=== PATIENT | female | born 1975 | race Caucasian/White ===

== ENCOUNTER 2018-07-15 14:54 | Outpatient (CLI) | payer BC | END 2018-07-15 17:39 | disposition home or self-care (01) | LOC: OBT 14:54 → L-D 14:56 → OBT 17:39 | DX: O40.3XX0 Polyhydramnios, third trimester, not applicable or unspecified (principal); O09.523 Supervision of elderly multigravida, third trimester; Z3A.32 32 weeks gestation of pregnancy | CPT/HCPCS: 76817; 76818; 82962 ==

== ENCOUNTER 2018-08-21 09:57 | Inpatient (IN) | payer BC, OTHER ==
[2018-08-21] MEDS ORDERED: CARBOPROST 250 MCG INJ IM (10:00)
[2018-08-21] MEDS ORDERED: OXYTOCIN 30 UNITS/LR 500 ML IV (10:00)
[2018-08-21] MEDS ORDERED: LIDOCAINE 1% (MPF) 30 ML INJ INJ (10:00)
[2018-08-21] MEDS ORDERED: BUTORPHANOL 2 MG INJ IV (10:00)
[2018-08-21] MEDS ORDERED: BUTORPHANOL 1 MG INJ IV (10:00)
[2018-08-21] MEDS ORDERED: IBUPROFEN 600 MG TAB PO (10:00)
[2018-08-21] MEDS ORDERED: MISOPROSTOL 200 MCG TAB PR (10:00)
[2018-08-21] MEDS ORDERED: METHYLERGONOVINE 0.2 MG INJ IM (10:00)
[2018-08-21 10:52] LABS: ADD MAN DIFF? NO
[2018-08-21 11:00] LABS: ABNORMAL IP MESSAGE 1; BASOPHILS % 0.3 % (0.0-2.0); HEMATOCRIT 29.1 % (37.0-47.0); HEMOGLOBIN 9.2 g/dl (12.0-16.0); LYMPHOCYTES # 1.9 10^3/ul (0.8-2.9); LYMPHOCYTES % 26.2 % (15.0-51.0); MEAN CORPUSCULAR HEMOGLOBIN 26.8 pg (29.0-33.0); MEAN CORPUSCULAR HGB CONC 31.6 g/dl (32.0-37.0); MEAN CORPUSCULAR VOLUME 84.8 fl (82.0-101.0); MEAN PLATELET VOLUME 13.5 fl (7.4-10.4); MONOCYTE # 0.3 10^3/ul (0.3-0.9); MONOCYTES % 4.3 % (0.0-11.0); NEUTROPHIL # 4.9 10^3/ul (1.6-7.5); NEUTROPHILS % 68.8 % (39.0-77.0); PLATELET COUNT 118 10^3/UL (140-415); RED BLOOD COUNT 3.43 10^6/ul (4.20-5.40); RED CELL DISTRIBUTION WIDTH 13.2 % (11.5-14.5)
[2018-08-21 11:00] LABS: WHITE BLOOD COUNT 7.1 10^3/ul (4.8-10.8)
[2018-08-21 11:01] LABS: POSITIVE DIFF @See below
[2018-08-21 11:19] LABS: INR 0.78; PARTIAL THROMBOPLASTIN TIME 23.2 Sec (23.0-35.0); PT RATIO 0.9
[2018-08-21 11:19] LABS: GLUCOSE 98 mg/dl (70-220)
[2018-08-21] MEDS: LACTATED RINGER'S 1,000 ML IV ×3 (11:29→17:59)
[2018-08-21] MEDS: OXYTOCIN 30 UNITS/LR 500 ML IV ×3 (14:00→22:25)
[2018-08-21] MEDS: DEXTROSE 5%-LR 1,000 ML IV (14:27)
[2018-08-21 15:07] LABS: HEPATITIS B SURFACE ANTIGEN NEGATIVE (NEGATIVE)
[2018-08-21] MEDS ORDERED: NALOXONE (0.4 MG/ML) INJ IV (18:00)
[2018-08-21] MEDS ORDERED: FENTAnyl 2MCG/ML-ROPIV 0.2% 100 ML BAG EPI (18:00)
[2018-08-21] MEDS ORDERED: FENTAnyl 2MCG/ML-ROPIV 0.2% 100 ML (18:06)
[2018-08-21 18:49] LABS: RAPID PLASMA REAGIN NONREACTIVE (NR)
[2018-08-21] MEDS: MINERAL OIL LIGHT 10 ML VIAL TOP (19:30)
[2018-08-22] MEDS ORDERED: ZOLPIDEM 5 MG TAB PO (01:30)
[2018-08-22] MEDS ORDERED: LANOLIN HPA 1 PKT TOP (01:30)
[2018-08-22] MEDS ORDERED: CARBOPROST 250 MCG INJ IM (01:30)
[2018-08-22] MEDS ORDERED: OXYCODONE/ASPIRIN (4.88/325) TAB PO (01:30)
[2018-08-22] MEDS ORDERED: MISOPROSTOL 200 MCG TAB PR (01:30)
[2018-08-22] MEDS ORDERED: OXYTOCIN 30 UNITS/LR 500 ML IV (01:30)
[2018-08-22] MEDS ORDERED: METHYLERGONOVINE 0.2 MG INJ IM (01:30)
[2018-08-22] MEDS: LACTATED RINGER'S 1,000 ML IV ×3 (01:59→12:47)
[2018-08-22] MEDS: WITCH HAZEL/GLYCERIN PAD PR (02:59)
[2018-08-22] MEDS: BENZOCAINE 20% 56 ML SPRAY TOP (03:00)
[2018-08-22] MEDS: OXYCODONE/ASPIRIN (4.88/325) TAB PO (03:17)
[2018-08-22] MEDS: IBUPROFEN 600 MG TAB PO ×4 (05:36→23:41)
[2018-08-22 08:21] LABS: ADD MAN DIFF? NO
[2018-08-22 08:33] LABS: ABNORMAL IP MESSAGE 1; BASOPHILS % 0.1 % (0.0-2.0); HEMATOCRIT 24.6 % (37.0-47.0); HEMOGLOBIN 7.8 g/dl (12.0-16.0); LYMPHOCYTES # 2.2 10^3/ul (0.8-2.9); MEAN CORPUSCULAR HEMOGLOBIN 26.9 pg (29.0-33.0); MEAN CORPUSCULAR HGB CONC 31.7 g/dl (32.0-37.0); MEAN CORPUSCULAR VOLUME 84.8 fl (82.0-101.0); MONOCYTE # 0.9 10^3/ul (0.3-0.9); MONOCYTES % 5.5 % (0.0-11.0); NEUTROPHIL # 12.8 10^3/ul (1.6-7.5); NEUTROPHILS % 79.9 % (39.0-77.0); PLATELET COUNT 91 10^3/UL (140-415); RED CELL DISTRIBUTION WIDTH 13.3 % (11.5-14.5)
[2018-08-22 08:41] LABS: POSITIVE DIFF @See below
[2018-08-22] MEDS: SENNA/DOCUSATE NA (8.6MG/50MG) TAB PO ×2 (09:00→21:06)
[2018-08-23] MEDS: IBUPROFEN 600 MG TAB PO ×3 (05:54→18:00)
[2018-08-23] MEDS: SENNA/DOCUSATE NA (8.6MG/50MG) TAB PO (08:46)
[2018-08-23] MEDS: DIPHTH/TET/ACEL PERTUSS (ADULT) 0.5 ML VIAL IM* (11:37)
== END 2018-08-23 18:25 | disposition home or self-care (01) | DRG 807 ==
LOC: L-D 09:57 → PP1 08-22 00:05
PROVIDERS: Specialist
PROC: 10E0XZZ Delivery of Products of Conception, External Approach (ICD-10-PCS; principal; 2018-08-21)
PROC: 0HQ9XZZ Repair Perineum Skin, External Approach (ICD-10-PCS; 2018-08-21)
DX: O14.94 Unspecified pre-eclampsia, complicating childbirth (principal); Z37.0 Single live birth; O24.420 Gestational diabetes mellitus in childbirth, diet controlled; O43.893 Other placental disorders, third trimester; O70.9 Perineal laceration during delivery, unspecified; Z3A.37 37 weeks gestation of pregnancy; Z23 Encounter for immunization
CPT/HCPCS: 62319; 76815; 82947; 82962; 85025; 85610; 85730; 86592; 86850; 86900; 86901; 87340; 88307; 90715; 99464